=== PATIENT | male | born 1965 | race Two or more races ===

== ENCOUNTER 2017-01-10 19:42 | Emergency (ER) | payer MEDICAID ==
[~2017-01-10] VITALS: Ht 154.9 cm; Wt 73.0 kg
[2017-01-10 20:17] VITALS: BP 125/69
== END 2017-01-10 23:57 | disposition left against medical advice (07) ==
LOC: ER 19:49
DX: R07.9 Chest pain, unspecified (principal); M25.552 Pain in left hip; Z53.21 Procedure and treatment not carried out due to patient leaving prior to being seen by health care provider; Y99.8 Other external cause status; Y93.89 Activity, other specified; W19.XXXA Unspecified fall, initial encounter; Y92.89 Other specified places as the place of occurrence of the external cause

== ENCOUNTER 2025-04-05 13:04 | Inpatient (IN) | payer MEDICAID, SELFPAY ==
[~2025-04-05] VITALS: Ht 152.4 cm; Wt 53.1 kg
[2025-04-05] MEDS: ENOXAPARIN SOD 40 MG/0.4 ML SYRINGE SC ONE (09:00)
--- NOTE | 2025-04-05 14:02 | DVH ---
CLINICAL INDICATION: FALL TECHNIQUE: 3v XY L ANKLE 3 VIEW Comparison: None FINDINGS/IMPRESSION: : Comminuted distal fibular diaphyseal fracture. Medial malleolar fracture. Disruption of the ankle m ortise. Calcaneus intact.
[2025-04-05] MEDS ORDERED: SODIUM CHLORIDE 0.9% 1,000 ML IV ONE (14:15)
[2025-04-05] MEDS ORDERED: SODIUM CHLORIDE 0.9% 500 ML IV ONE (14:15)
--- NOTE | 2025-04-05 14:24 | ED.PDOC ---
Musculoskeletal HPI Comments A 59-YEAR-OLD FEMALE PRESENTS WITH A CHIEF COMPLAINT OF LEFT ANKLE/FOOT PAIN. PATIENT STATES THAT HER "LEG GAVE OUT FROM UNDERNEATH ME" AND HYPEREXTENDED. PATIENT STATES THAT THIS OCCURRED 1.5 WEEKS AGO. PATIENT STATES THAT SHE WAITED THIS LONG TO BE SEEN BECAUSE SHE DIDN'T THINK SHE BREAK IT AT FIRST. PATIENT IS UNABLE TO APPLY WEIGHT TO HER LEFT ANKLE. PATIENT HAS SWELLING, PAIN AND DEFORMITY TO HER LEFT ANKLE. THERE IS AN OBVIOUS DEFORMITY. PT DENIES HEAD INJURY AND OTHER BODY INJURY. NO OTHER SYMPTOMS REPORTED AT THIS TIME OF CARE. Chief Complaint: Lower Extremity Time Seen by MD: 13:52 Primary Care Provider: Veronica Bella Notes: Nurses Notes, Medications, Allergies Allergies: Coded Allergies: NO KNOWN ALLERGIES (Unverified , 01/10/17) Information Source: Patient Mode of Arrival: Wheelchair Location: Left Extremity Location: Ankle, Foot Timing: Days Prehospital treatment: None Severity: Moderate Able to Move Extremity: Yes Bear Weight: No Pain: Moderate Hand Dominance: Right Mechanism: Hyperextension, Spontaneous Circumstances: Spontaneous Onset of Symptoms: After Trauma Symptoms: Swelling, Pain DVT Risk Factors: NONE Last Tetanus: UTD, Unknown Associated signs and symptoms: None Past Medical History PAST MEDICAL HISTORY: DM Past Medical History (Other): NEUROPATHY Surgical History: Denies all surgeries ONCOLOGY COORDINATOR History: Denies all ONCOLOGY COORDINATOR Hx Family History Family History: Reviewed,noncontributory to illness Social History Smoker: Non-Smoker Alcohol: Denies ETOH Use Drugs: Denies Drug Use Lives In: Home Constitutional: denies: chills, diaphoresis, fatigue, fever, malaise, sweats, weakness, others EENTM: denies: blurred vision, double vision, ear bleeding, ear discharge, ear drainage, ear pain, ear ringing, eye pain, eye redness, hearing loss, mouth pain, mouth swelling, nasal discharge, nose bleeding, nose congestion, nose pain, photophobia, tearing, throat pain, throat swelling, voice changes, others Respiratory: denies: cough, hemoptysis, orthopnea, SOB at rest, shortness of breath, SOB with excertion, stridor, wheezing, others Cardiovascular: denies: chest pain, dizzy spells, diaphoresis, Dyspnea on exertion, edema, irregular heart beat, left arm pain, lightheadedness, palpitations, PND, syncope, others Gastrointestinal: denies: abdomen distended, abdominal pain, blood streaked bowels, constipated, diarrhea, dysphagia, difficulty swallowing, hematemesis, melena, nausea, poor appetite, poor fluid intake, rectal bleeding, rectal pain, vomiting, others Genitourinary: denies: abnormal vagina bleeding, burning, dyspareunia, dysuria, flank pain, frequency, hematuria, incontinence, pain, , vagina discharge, urgency, others Neurological: denies: dizziness, fainting, headache, left sided numbness, left sided weakness, numbness, paresthesia, pre-existing deficit, right sided numbness, right sided weakness, seizure, speech problems, tingling, tremors, weakness, others Musculoskeletal: reports: joint pain, joint swelling; denies: back pain, gout, muscle pain, muscle stiffness, neck pain, others Integumetry: denies: bruises, change in color, change in hair/nails, dryness, laceration, lesions, lumps, rash, wounds, others Allergic/Immunocompromised: denies: Difficulty Healing, Frequent Infections, Hives, Itching, others Hematologic/Lymphatic: denies: anemia, blood clots, easy bleeding, easy bruising, swollen glands, others Endocrine: denies: excessive hunger, excessive sweating, excessive thirst, excessive urination, flushing, intolerance to cold, intolerance to heat, unexplained weight gain, unexplained weight loss, others Psychiatric: denies: anxiety, bipolar disorder, depression, hopeless, panic disorder, schizophrenia, sleepless, suicidal, others All Other Systems: Reviewed and Negative Physical Exam General Appearance: No Apparent Distress, Normal HEENT: Normal ENT Inspection, PERRL/EOMI, Pharynx Normal, TMs Normal Neck: Full Range of Motion, Non-Tender, Normal, Normal Inspection Respiratory: Chest Non-Tender, Lungs Clear, No Accessory Muscle Use, No Respiratory Distress, Normal Breath Sounds Cardiovascular: No Edema, No JVD, No Murmur, No Gallop, Normal Peripheral Pulses, Regular Rate/Rhythm Breast Exam: Deferred Gastrointestinal: No Organomegaly, Non Tender, No Pulsatile Mass, Normal Bowel Sounds, Soft Genitalia: Deferred Pelvic: Deferred Rectal: Deferred Extremities: Decreased range of motion, No calf tenderness, Normal capillary refill, No pedal edema, Swelling (BONY TENDERNESS AND SWELLING ON LEFT INNER ANKLE, +DEFORMITY. ), Tender (BONY TENDERNESS, SWELLING AND DEFORMITY ON LEFT INNER ANKLE, A SMALL ABRASION ON LEFT INNER ANKLE WALL WITH LOCALIZED REDNESS, NO PUS DRAINAGE. ) Musculoskeletal : Apperance: Normal Neurologic: Alert, immersion metal cleaner II-XII nml as Tested, No Motor Deficits, Normal Affect, Normal Mood, No Sensory Deficits Cerebellar Function: Normal Reflexes: Normal Skin: Dry, Normal Color, Warm, Wounds (A SMALL ABRASION ON LEFT INNER ANKLE. ) Peripheral Pulses: 2+ carotid (R), 2+ carotid (L), 2+ dorsalis pedis (R), 2+ dorsalis pedis (L) Lymphatic: No Adenopathy Was a procedure done? Was a procedure done?: No Differential Diagnosis EXT Differential Diagnosis: Cellulitis, Fracture, Sprain, Contusion, Strain X-Ray, Labs, Meds, VS Vital Signs Date Time Temp Pulse Resp B/P (MAP) Pulse Ox O2 Delivery O2 Flow Rate FiO2 04/05/25 14:14 97.7 79 17 123/58 (79) 96 97.7 04/05/25 14:14 79 17 96 Room Air 04/05/25 13:05 97.9 82 16 111/54 97 97.9 Current Medications Medications (Trade) Dose Ordered Sig/Abdiel Route Start Time Stop Time Status Last Admin Acetaminophen/ Hydrocodone Bitart ([place] 5/325MG Tab) 1 tab ONCE ONCE PO 04/05/25 14:15 04/05/25 14:16 DC 04/05/25 14:39 PATIENT: ARASH TURNERCT: [id number]: [id number] : 1965 LOC: ER ROOM / BED: / AGE / SEX: 59 / F ADM STATUS: REG ER SERVICE 1322 ORDERING PHYSICIAN: EDEL GE PROCEDURE(s): LANKL - L ANKLE 3 VIEW REASON: FALL ORDER NUMBER(s): [id number], ACCESSION NUMBER(s): [id number] CLINICAL INDICATION: FALL TECHNIQUE: 3v XY L ANKLE 3 VIEW Comparison: None FINDINGS/IMPRESSION: : Comminuted distal fibular diaphyseal fracture. Medial malleolar fracture. Disruption of the ankle mortise. Calcaneus intact. ATED BY: KEN ALMANZA MD DICTATED DATE/TIME: 04/05/25 1400 SIGNED BY: KEN ALMANZA MD SIGNED DATE/TIME: 04/05/25 1400 CC: X-Ray, Labs, Meds, VS Comment EXTERNAL MEDICAL RECORDS REVIEWED: [NONE] INDEPENDENT HISTORIANS: [NONE] SOCIAL DETERMINANTS OF HEALTH: [NONE] LABS ORDERED: NONE REVIEWED AND INTERPRETED RESULTS: NONE IMAGING ORDERED: L ANKLE/FOOT X-RAY TREATMENTS ORDERED: NORCO 5/325 PO, NS0.9 500ML PROCEDURES PERFORMED: NONE CRITICAL CARE TIME: NONE I HAVE DISCUSSED THE PATIENT WITH THE ATTENDING PHYSICIAN, DR. LOIDA MARTINEZ, AND SHE AGREES WITH THE PATIENT'S PLAN OF CARE AND DISPOSITION. 15:00 I DISCUSSED THE CASE WITH ORTHOPEDIC SURGEON, DR. TORRES. DR. TORRES ADVISED TO ADMIT THE PATIENT TO THE HOSPITAL SO THAT HE CAN CONSULT AND SCHEDULE PATIENT FOR SURGERY TO REPAIR HER LEFT ANKLE FRACTURE. BASED ON THE IMAGING STUDIES AND CONSULTATION WITH ORTHO, I WILL ADMIT THE PATIENT TO THE HOSPITAL FOR FURTHER WORK-UP AND PENDING SURGERY. Time of 1ST Reevaluation: 15:00 Reevaluation 1ST: Unchanged Consultation: Other (15:00 I DISCUSSED THE CASE WITH ORTHOPEDIC SURGEON, DR. TORRES. ) Patient Education/Counseling: Diagnosis, Treatment Family Education/Counseling: Diagnosis, Treatment Departure 1 Departure Time of Disposition: 15:00 Impression: Primary Impression: Displaced fracture of shaft of left fibula Qualified Codes: S82.452A - Displaced comminuted fracture of shaft of left fibula, initial encounter for closed fracture Additional Impression: Fracture of medial malleolus, left, closed Qualified Codes: S82.52XA - Displaced fracture of medial malleolus of left tibia, initial encounter for closed fracture Disposition: ADMITTED INPATIENT Admit to: Med Surg Condition: Serious Discharged With: Self Critical Care Note Critical Care Time?: No Stability Stability form required: Yes Unstable for transfer: Requires medication, ED Physician Assesment, Possible rapid decline Heart Score Heart Score: Heart Score Response (Comments) Value History N/A 0 EKG N/A 0 Age N/A 0 Risk Factors N/A 0 Troponin N/A 0 Total 0 I personally scribed for EDEL GE ([email or web address]) on 04/05/25 at 14:24. Electronically submitted by Olman Wakefield ([email or web address]). EDEL GE Apr 05, 2025 14:24
[2025-04-05] MEDS ORDERED: DOCUSATE SOD 100 MG CAP PO PRN (14:30)
[2025-04-05] MEDS ORDERED: MORPHINE SULFATE INJ 2 MG/ml SYRG IV PRN (14:30)
[2025-04-05] MEDS ORDERED: ACETAMINOPHEN 325 MG TAB PO PRN (14:30)
[2025-04-05] MEDS ORDERED: NITROGLYCERIN 0.4 MG SL TAB SL PRN (14:30)
[2025-04-05] MEDS: HYDROcodone-ACET 5/325MG TAB PO ONE (14:39)
--- NOTE | 2025-04-05 15:07 | DVHHPRES ---
History of Present Illness Resident Creating Document: DUYEN WILSON RESIDENT History of Present Illness Ms. Macias,a 59-year-old female presents with left ankle and foot pain following a spontaneous hyperextension injury 1.5 weeks ago, describing that her "leg gave out" beneath her. She delayed seeking care, believing the injury was not severe initially. She is currently unable to bear weight on the affected limb and reports moderate pain, swelling, erythema, and visible deformity. She arrived via wheelchair and is able to move the extremity but not ambulate. No prehospital treatment was administered. Her past medical history is significant for diabetes; she denies any surgical, gynecological, or family history relevant to the current illness. She is a non-smoker and denies alcohol or drug use. PMHx: DM PSHx: Denies all surgeries RECAPPER History: Denies all OBGYN Family History: Reviewed, noncontributory to illness Social History: lives at home with family, denies alcohol, recreational drug, or any other substances. Review of Systems Constitutional: No: Fever, Chills, Sweats, Weakness, Malaise, Other Eyes: No: Pain, Vision change, Conjunctivae inflammation, Eyelid inflammation, Other, Redness ENT: No: Ear pain, Ear discharge, Nose pain, Nose discharge, Nose congestion, M outh pain, Mouth swelling, Throat pain, Throat swelling, Other Respiratory: No: Cough, Dry, Shortness of breath, SOB with excertion, Wheezing, Hemoptysis, Pleuritic Pain, Sputum, Wheezing, Other Cardiovascular: No: Chest Pain, Palpitations, Orthopnea, Paroxysmal Noc. Dyspnea, Edema, Lt Headedness, Other Gastrointestinal: No: Nausea, Vomiting, Abdominal Pain, Diarrhea, Constipation, Melena, Hematochezia, Other Genitourinary: No Dysuria, No Frequency, No Incontinence, No Hematuria, No Retention, No Other Musculoskeletal: foot pain; No: other, neck pain, shoulder pain, arm pain, back pain, hand pain, leg pain Skin: No: Rash, Lesions, Jaundice, Bruising, Other Neurological: No: Weakness, Numbness, Incoordination, Change in speech, Confu tyshawn, Seizures, Other Allergies: Coded Allergies: NO KNOWN ALLERGIES (Unverified , 01/10/17) Medications Current Medications Medications Dose Ordered Sig/Abdiel Route Start Time Stop Time Status Last Admin Dose Admin Sodium Chloride 1,000 ml @ 120 mls/hr Q8H20M IV 04/05/25 14:30 Acetaminophen 325 mg Q4HP PRN PO 04/05/25 14:30 Acetaminophen/ Hydrocodone Bitart 1 tab Q4HP PRN PO 04/05/25 14:30 Ondansetron HCl 4 mg Q4HP PRN IV 04/05/25 14:30 Docusate Sodium 100 mg BIDPRN PRN PO 04/05/25 14:30 Morphine Sulfate 2 mg Q4HPRN PRN IV 04/05/25 14:30 Nitroglycerin 0.4 mg Q5MINP PRN SL 04/05/25 14:30 Morphine Sulfate 2 mg Q30M PRN IV 04/05/25 14:30 Exam Vital Signs Vital Signs Date Time Temp Pulse Resp B/P (MAP) Pulse Ox O2 Delivery O2 Flow Rate FiO2 04/05/25 14:14 97.7 79 17 123/58 (79) 96 97.7 04/05/25 14:14 Room Air General Appearance: Alert, Oriented X3, Cooperative, mild distress HEENT: Atraumatic, PERRLA, EOMI, Other (dry mucosa) Respiratory: Clear to auscultation, Normal air movement Cardiovascular: Regular rate, Normal S1, Normal S2, No murmurs Abdominal: Normal bowel sounds, Soft, No tenderness, No hepatospenomegaly, No masses Extremities: No clubbing, No cyanosis, No edema, Normal pulses, No tenderness/swelling, Other (left ankle deformity acute as compared to the right one ) Skin: No rashes, No breakdown, No significant lesion Neuro: Normal speech, Strength at 5/5 X4 ext, Normal tone, Sensation intact, Cranial nerves 3-12 NL, Reflexes 2+, Other (deformity, tenderness and pain the the left ankle. ) Psych/Mental Status: Mental status NL, Mood NL SEPSIS Sepsis Screen Date sepsis recognized/suspect: Apr 05, 2025 Time Sepsis recognized/suspect: 1308 Recent Procedure: No On Antibiotic Therapy: No Respiratory Rate >20: No Heart Rate >90: No Temp<36 C (96.8 F) or >38.3 C: No SBP <90 or MAP <65 mmHG: No New Acute Mental Status Change: No Is the patient on CPAP, BIPAP,: No Physician Orders L Ankle 3 View (04/05/25 13:22) Complete Blood Count (04/05/25 14:08) Basic Metabolic Panel (04/05/25 14:08) Prothrombin Time W/ Inr (04/05/25 14:08) Type And Screen (04/05/25 14:08) Heplock Iv (04/05/25 ) Sodium Chloride 0.9% (04/05/25 14:15) Sodium Chloride 0.9% (04/05/25 14:15) Admit (04/05/25 14:28) Allergies (04/05/25 14:) Code Status (04/05/25 14:) Sodium Chloride 0.9% (04/05/25 14:30) Acetaminophen Tablet (Tylenol Tablet) (04/05/25 14:30) Hydrocodone-Acet 5/325mg Tab ([place] 5/32 (04/05/25 14:30) Ondansetron Hcl (Zofran) (04/05/25 14:30) Docusate Sodium Capsule (Colace Capsule) (04/05/25 14:30) Fall Risk Precautions In Place QSHIFT (04/05/25 14:28) Complete Blood Count (04/06/25 04:00) Comprehensive Metabolic Panel (04/06/25 04:00) Cardiac Diet-2gna,Lofat,Lochol (04/05/25 Dinner) Pt Request For Service (04/05/25 14:) Echo 2d Mode Cardiac Dop (04/05/25:28) Carotid Duplx W Color Dop (04/05/25 14:28) Condition: Fair (04/05/25 14:28) Bedrest With Bathroom Privileg (04/05/25 14:28) Morphine Sulfate Injection (04/05/25 14:30) Sequential Compression Device (04/05/25 ) Nitroglycerin Sublingual (Ntrostat Subli (04/05/25 14:30) Morphine Sulfate Injection (04/05/25 14:30) Oxygen By Nasal Cannula (04/05/25:) Stat Ekg For Chest Pain (04/05/25 14:) Notify Md Of Changes From Base (04/05/25 14:28) Escalator Operator For 24 Hours (04/05/25 14:28) Emergency Dysrhythmia Protocol (04/05/25 14:28) Rhythm Strips Once Every Shift (04/05/25 14:28) Hepatic Panel (04/05/25 14:28) * Orthopedic Consult (04/05/25 14:35) Fall Precautions Initiated (04/05/25 14:40) Ekg On Admit (04/05/25 14:42) Troponin-I Hs (04/05/25 14:42) Vital Signs Date Time Temp Pulse Resp B/P (MAP) Pulse Ox O2 Delivery O2 Flow Rate FiO2 04/05/25 14:14 97.7 79 17 123/58 (79) 96 97.7 04/05/25 14:14 79 17 96 Room Air 04/05/25 13:05 97.9 82 16 111/54 97 97.9 Medications Medications Dose Ordered Sig/Abdiel Route Start Time Stop Time Status Last Admin Dose Admin Acetaminophen/ Hydrocodone Bitart 1 tab ONCE ONCE PO 04/05/25 14:15 04/05/25 14:16 DC 04/05/25 14:39 1 TAB Assessment/Plan Assessment/Plan # Left ankle fracture: Computed distal fibular fracture, medial malleolar fracture, pain control, orthopedic consult. physical therapy on board. # Diabetes mellitus: At presentation POC is 331, check HbA1c, control the BG, in-hospital target 140s to 180. # Mechanical fall: Ruled out any stroke, fall precautions, neuro checks, unlikely distal neurovascular compromise, orthopedic consult, pain control, labs to check. Rule out ACS, stroke, neuro Logic, cardiac, cause of syncope. orthostatic vitals to check. # Fall fracture, likely underlying osteopenia/ osteoporosis: Risk assessment and management outpatient chawla. # GI prophylaxis: Oral Famotidine # Diet: Cardiac, CCH # DVT prophylaxis: lovenox PCP: Dr. Penny Barriers to discharge: Medical management ongoing Case discussed with Dr. Suarez. Code status: Full code. Complex patient care discussion needed total 35 minutes. Plan discussed with: Patient My Orders Orders - DUYEN WILSON RESIDENT Procedure Category Date Status Time Admit ADMIT 04/05/25 Transmitted 14:28 Allergies ANG 04/05/25 In Process 14:28 Code Status CODE 04/05/25 Transmitted 14:28 Sodium Chloride 0.9% PHA 04/05/25 In Process 14:30 Acetaminophen Tablet PHA 04/05/25 In Process (Tylenol Tablet) 14:30 Hydrocodone-Acet PHA 04/05/25 In Process 5/325mg Tab ([place] 14:30 Ondansetron Hcl PHA 04/05/25 In Process (Zofran) 14:30 Docusate Sodium PHA 04/05/25 In Process Capsule (Colace 14:30 Fall Risk Precautions ANG 04/05/[address] 14:28 Complete Blood Count LAB 04/06/25 Verified 04:00 Comprehensive LAB 04/06/25 Verified Metabolic Panel 04:00 Cardiac DIET 04/05/25 Transmitted Diet-2gna,Lofat,Lochol Dinner Pt Request For Service PT 04/05/25 Logged 14:28 Echo 2d Mode Cardiac US 04/05/25 Logged DOP 14:28 Carotid Duplx W Color US 04/05/25 Logged DOP 14:28 Condition: Fair ANG 04/05/25 In Process 14:28 Bedrest With Bathroom ANG 04/05/25 In Process Privileg 14:28 Morphine Sulfate PHA 04/05/25 In Process Injection 14:30 Sequential ANG 04/05/25 In Process Compression Device Nitroglycerin PHA 04/05/25 In Process Sublingual (Ntrostat 14:30 Morphine Sulfate PHA 04/05/25 In Process Injection 14:30 Oxygen By Nasal RT 04/05/25 Transmitted Cannula 14:28 Stat Ekg For Chest ANG 04/05/25 In Process Pain 14:28 Notify Of Changes ANG 04/05/25 In Process From Base 14:28 Escalator Operator For ANG 04/05/25 In Process 24 Hours 14:28 Emergency Dysrhythmia ANG 04/05/25 In Process Protocol 14:28 Rhythm Strips Once ANG 04/05/25 In Process Every Shift 14:28 Hepatic Panel LAB 04/05/25 Logged 14:28 * Orthopedic Consult CONS 04/05/25 Transmitted 14:35 Fall Precautions ANG 04/05/25 In Process Initiated 14:40 Ekg On Admit ANG 04/05/25 In Process 14:42 Troponin-I Hs LAB 04/05/25 Logged 14:42 Date of Service: Apr 05, 2025 Billing Provider: GLO SUAREZ MD Common Visit Codes: [id number] INP/OBS CARE (HIGH) Secondary Visit Codes: [id number] CARE PLAN 30 MINUTES DUYEN WILSON RESIDENT Apr 05, 2025 15:07
[2025-04-05 15:15] LABS: Hematocrit 34.5 % (36.0-46.0); Hemoglobin 11.6 g/dL (12.2-16.2); Mean Corpuscular Hemoglobin 31.6 pg (28.0-32.0); Mean Corpuscular Volume 94.2 fL (80.0-100.0); Nucleated Red Blood Cells % 0.1 %
[2025-04-05] MEDS: ACCU-CHEK COMFORT CURVE STRIP VI ONE (15:15)
[2025-04-05] MEDS ORDERED: DEXTROSE (50%) 50ML SYRG IV ONE (15:15)
[2025-04-05] MEDS ORDERED: ENOXAPARIN SOD 30 MG/0.3 ML SYRINGE SC ONE (15:15)
[2025-04-05] MEDS ORDERED: FAMOTIDINE 20 MG TAB PO ONE (15:15)
[2025-04-05 15:19] LABS: Chloride 104 mmol/L (98-107); Potassium 5.1 mmol/L (3.5-5.1); Sodium 138 mmol/L (136-145)
[2025-04-05 15:20] LABS: Anion Gap 6 (5-15); Calcium 9.1 mg/dL (8.7-10.4); Carbon Dioxide 28 mmol/L (20-31)
[2025-04-05 15:25] LABS: BUN/Creatinine Ratio 40.7 (10.0-20.0)
[2025-04-05 15:26] LABS: Blood Urea Nitrogen 46 mg/dL (9-23); Glucose 306 mg/dL (74-106)
[2025-04-05 15:27] LABS: INR 0.98 (0.9-1.15); Prothrombin Time 10.4 sec (9.3-11.8)
[2025-04-05 15:37] LABS: Alanine Aminotransferase 14 U/L (7-40); Albumin 4.2 g/dL (3.2-4.8); Total Protein 6.9 g/dL (5.7-8.2)
[2025-04-05 15:42] LABS: Alkaline Phosphatase 131 U/L (46-116); Bilirubin, Direct < 0.1 mg/dL (<0.3); Bilirubin, Total 0.2 mg/dL (0.2-1.0)
--- NOTE | 2025-04-05 16:12 | DVH ---
Carotid Duplex Date: 04/05/2025 03:04 PM Clinical History: possible carotid stenosis to rule out Comparison: None Technique: Duplex Doppler evaluation of the extracranial carotid and vertebral arteries including col or Doppler and spectral/pulsed waveform analysis was performed. Findings: RIGHT SIDE: The peak systolic velocities are 69 cm/s in the distal CCA and 116 cm/s in the proximal ICA.The ICA/C CA ratio is less than 2. The external carotid artery is patent with peak systolic velocity of 162 cm/s proximally. There is appropriate antegrade flow in the right vertebral artery. LEFT SIDE: The peak systolic velocities are 85 cm/s in the distal CCA and 136 cm/s in the proximal ICA.. The ICA /CCA ratio is less than 2. The external carotid artery is patent with peak systolic velocity of 86 cm/s proximally. There is appropriate antegrade flow in the left vertebral artery. IMPRESSION: 1. No hemodynamically significant stenosis noted in the right carotid system. 2. No hemodynamically significant stenosis noted in the left carotid system. 3. Mild calcified plaque bilaterally greater than 50% stenosis on the right and less than 50% stenosi s on the left. 4. Reference: Radiology 2003; 229:[id number]
--- NOTE | 2025-04-05 16:51 | DVH ---
CHEST RADIOGRAPH Indication: cad Technique: Single frontal view of the chest was obtained COMPARISON: None FINDINGS: Lines and Tubes: None Lungs: Congestion Pleura: No effusion. No pneumothorax. Cardiomediastinal contours: Unremarkable Bones: Unremarkable IMPRESSION: Increased interstital prominence. This may represent pulmonary vascular congestion and/or viral pneum onia. Clinical correlation advised.
[2025-04-05 18:00] VITALS: BP 153/78; PULSE 71; RESP 17; TEMP 97.3; O2SAT 97
--- NOTE | 2025-04-05 18:04 | DVH ---
Left lower extremity venous duplex Clinical History: LEFT ANKLE FX, PER Comparison: XY L ANKLE 3 VIEW on DOS: 04/05/25 Technique: Duplex Doppler evaluation of the deep venous system of the left lower extremity from the common femor al vein to the popliteal vein including color Doppler and spectral/pulsed waveform analysis was perfo rmed. Findings: The common femoral vein demonstrates appropriate compressibility and waveform variability. There is compressibility/patency of the great saphenous vein at the proximal thigh. The femoral vein demonstrates appropriate compressibility and waveform variability. The deep femoral vein demonstrates appropriate compressibility and waveform variability. The popliteal vein demonstrates appropriate compressibility and waveform variability. There is normal compressibility at the tibioperoneal trunk. Impression: 1. No left femoropopliteal venous thrombosis.
[2025-04-05 20:00] VITALS: RESP 18
[2025-04-05] MEDS: MORPHINE SULFATE INJ 2 MG/ml SYRG IV PRN (20:09)
[2025-04-05 21:00] VITALS: BP 169/77; PULSE 74; RESP 16; TEMP 97.3; O2SAT 95
[2025-04-05] MEDS: INSULIN LANTUS (GLARGINE) 1 /0.01ml (100units/ml) SC SCH (22:29)
[2025-04-06] VITALS (9 sets, daily range): BP systolic 133–168; BP diastolic 67–88; PULSE 71–85; RESP 16–18; TEMP 97.6–98.5; O2SAT 93–98
[2025-04-06] MEDS: SODIUM CHLORIDE 0.9% 1,000 ML IV SCH (01:20)
[2025-04-06 05:35] LABS: Hematocrit 31.8 % (36.0-46.0); Hemoglobin 10.8 g/dL (12.2-16.2); Mean Corpuscular Hemoglobin 31.5 pg (28.0-32.0); Mean Corpuscular Volume 92.4 fL (80.0-100.0); Nucleated Red Blood Cells % 0.0 %
[2025-04-06 05:52] LABS: Alanine Aminotransferase 10 U/L (7-40); Albumin 3.6 g/dL (3.2-4.8); Alkaline Phosphatase 111 U/L (46-116); Anion Gap 5 (5-15); BUN/Creatinine Ratio 40.0 (10.0-20.0); Calcium 9.0 mg/dL (8.7-10.4); Carbon Dioxide 27 mmol/L (20-31); Chloride 106 mmol/L (98-107); Potassium 4.8 mmol/L (3.5-5.1); Sodium 138 mmol/L (136-145); Total Protein 6.7 g/dL (5.7-8.2)
[2025-04-06 05:54] LABS: Bilirubin, Total 0.2 mg/dL (0.2-1.0); Blood Urea Nitrogen 28 mg/dL (9-23); Glucose 185 mg/dL (74-106)
[2025-04-06] MEDS ORDERED: ceFAZolin 2 GM/D5W50ml 50 ML IV ONE (07:32)
[2025-04-06] MEDS: ENOXAPARIN SOD 40 MG/0.4 ML SYRINGE SC SCH (10:00)
--- NOTE | 2025-04-06 12:24 | DVHPN2 ---
Subjective Patient is seen and examined at bedside, patient reports she was in her kitchen slipped and fell. Left ankle swollen. Reviewed x-ray findings with the patient and spouse. Patient does report she has smoker but no shortness of breaths. Changes from previous H/P or p: No Changes Eyes: No Pain, No Vision change, No Conjunctivae inflammation, No Eyelid inflammation, No Other, No Redness ENT: No Ear pain, No Ear discharge, No Nose pain, No Nose discharge, No Nose congestion, No Mouth pain, No Mouth swelling, No Throat pain, No Throat swelling, No Other Cardiovascular: No Chest Pain, No Palpitations, No Orthopnea, No Paroxysmal Noc. Dyspnea, No Edema, No Lt Headedness, No Other Respiratory: No Cough, No Dry, No Shortness of breath, No SOB with excertion, No Wheezing, No Hemoptysis, No Pleuritic Pain, No Sputum, No Other Gastrointestinal: No Nausea, No Vomiting, No Abdominal Pain, No Diarrhea, No Constipation, No Melena, No Hematochezia, No Other Genitourinary: No Dysuria, No Frequency, No Incontinence, No Hematuria, No Retention, No Other Musculoskeletal: No other, No neck pain, No shoulder pain, No arm pain, No back pain, No hand pain, No leg pain; foot pain Skin: No Rash, No Lesions, No Jaundice, No Bruising, No Other Objective Vitals Vital Signs Date Time Temp Pulse Resp B/P (MAP) Pulse Ox O2 Delivery O2 Flow Rate FiO2 04/06/25 08:57 98.0 83 16 162/78 (106) 98 98.0 04/06/25 08:00 Room Air* 0 21 Intake/Output Intake and Output 04/06/25 07:00 Intake Total 500 ml Balance 500 ml Intake Oral 500 ml # Voids 3 General Appearance: Alert, Oriented X3, Cooperative, No acute distress HEENT: Atraumatic Lungs: Clear to auscultation Cardiovascular: Regular rate, Normal S1, Normal S2 Abdomen: Normal bowel sounds, Soft Extremities: Other (Left Ankle Swelling) Psych/Mental Status: Mental status NL Medications Current Medications Medications Dose Ordered Sig/Abdiel Route Start Time Stop Time Status Last Admin Dose Admin Acetaminophen 325 mg Q4HP PRN PO 04/05/25 14:30 Acetaminophen/ Hydrocodone Bitart 1 tab Q4HP PRN PO 04/05/25 14:30 Ondansetron HCl 4 mg Q4HP PRN IV 04/05/25 14:30 Docusate Sodium 100 mg BIDPRN PRN PO 04/05/25 14:30 Morphine Sulfate 2 mg Q4HPRN PRN IV 04/05/25 14:30 04/06/25 01:37 2 MG Nitroglycerin 0.4 mg Q5MINP PRN SL 04/05/25 14:30 Morphine Sulfate 2 mg Q30M PRN IV 04/05/25 14:30 Famotidine 20 mg HS PO 04/06/25 22:00 Enoxaparin Sodium 40 mg DAILY SC 04/06/25 10:00 Insulin Glargine 10 units HS SC 04/05/25 22:00 04/05/25 22:29 10 UNITS Laboratory Results Laboratory Tests 04/06/25 04:34 Chemistry Test 04/05/25 14:40 04/06/25 04:34 Albumin 4.2 g/dL (3.2-4.8) 3.6 g/dL (3.2-4.8) Calcium Level 9.1 mg/dL (8.7-10.4) 9.0 mg/dL (8.7-10.4) Total Protein 6.9 g/dL (5.7-8.2) 6.7 g/dL (5.7-8.2) Coagulation Test 04/05/25 14:40 Prothrombin Time 10.4 sec (9.3-11.8) Prothrombin Time INR 0.98 (0.9-1.15) Cardiac Markers Test 04/06/25 04:34 B-Type Natriuretic Peptide Pending LFT Test 04/05/25 14:40 04/06/25 04:34 Alanine Aminotransferase (ALT) 14 U/L (7-40) 10 U/L (7-40) Alkaline Phosphatase 131 U/L (46-116) H 111 U/L (46-116) Aspartate Amino Transferase (AST) 16 U/L (13-40) 13 U/L (13-40) Direct Bilirubin < 0.1 mg/dL (<0.3) Total Bilirubin 0.2 mg/dL (0.2-1.0) 0.2 mg/dL (0.2-1.0) HgA1c, TSH Test 04/05/25 14:40 Hemoglobin A1c 9.8 % A1C (<5.7) H Thyroid Stimulating Hormone (TSH) 2.08 uIU/mL (0.55-4.78) Assessment/Plan Assessment/Plan # Left Ankle Fracture - Ortho Surgery in AM # Uncontrolled DM2 A1c 9.8 - 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 Pulm Edema - Get CT Chest - ECHO # CHRISTINA due to VMN- present on admission - Improving - DC IVF now due to possible pulm edema # Goals of care discussion >19 mins FULL CODE Plan discussed with: Patient, Spouse My Orders Orders - GLO PANIAGUA MD Procedure Category Date Status Time B-Type Natriuretic LAB 04/06/25 In Process Peptide 10:48 Covid19 Antigen [place] [facility] 04/06/25 Logged Rapid Influenza A&B LAB 04/06/25 Logged 10:48 Basic Metabolic Panel LAB 04/07/25 Verified 04:00 Complete Blood Count LAB 04/07/25 Verified 04:00 B-Type Natriuretic LAB 04/07/25 Verified Peptide 04:00 Magnesium LAB 04/07/25 Verified 04:00 Insert Kidd Catheter ANG 04/06/25 Transmitted 12:19 Provide Diabetic ORDERS 04/06/25 Transmitted Education 12:20 Date of Service: Apr 06, 2025 Billing Provider: GLO PANIAGUA MD Common Visit Codes: 03255-[id number]/[id number] DISCH DAY >30min GLO PANIAGUA MD Apr 06, 2025 12:24
[2025-04-06] MEDS ORDERED: DEXTROSE (50%) 50ML SYRG IV PRN (12:45)
--- NOTE | 2025-04-06 13:17 | DVH ---
Procedure: CT CHEST WITHOUT CONTRAST Reason for study/Clinical History: pna Comparison Study: XY CHEST XRAY 1 VIEW on DOS: 04/05/25 TECHNIQUE: Multidetector CT of the chest was performed from the lung apices to the upper abdomen with out the use of intravenous contract. Axial, coronal and sagittal multiplanar reformats were performed . Radiation Dose Information: CT Dose: CTDI volume is 5.22 mGy. Dose-length product is 192.49 mGy*cm The dose indicators for CT are the volume Computed Tomography (CT) Dose Index (CTDIvol) and the Dose Length Product (DLP), and are measured in units of mGy and mGy-cm, respectively. These indicators are not patient dose, but values generated from the CT scanner acquisition factors. The report includes radiation exposure data for exposures received during this examination. FINDINGS: Lower neck: Unremarkable. Lungs: No focal consolidation. No suspicious pulmonary nodule. Heart/Vascular Structures: Cardiomegaly. Coronary artery calcifications. Vascular calcifications of t he aorta. Lymph Nodes: No adenopathy Pleura: No pleural effusion or significant pneumothorax. Musculoskeletal: No acute osseous abnormality. Mild degenerative changes of the spine. Soft tissues: Normal. Upper abdomen: Cholelithiasis IMPRESSION: No acute intrathoracic abnormality. Radiation optimization: All CT scans at this facility use at least one of these dose optimization vikram hniques: automated exposure control mA and/or kV adjustment per patient size (includes targeted exam s where dose is matched to clinical indication) or iterative reconstruction.
[2025-04-06] MEDS: InsuLIN REG 1unit/0.01ml Soln (100units/ml) SC ONE (16:49)
[2025-04-06] MEDS: ACCU-CHEK COMFORT CURVE STRIP VI SCH (17:00)
[2025-04-06] MEDS: InsuLIN REG 1unit/0.01ml Soln (100units/ml) SC SCH (17:12)
[2025-04-06 18:04] LABS: COVID19 ANTIGEN SOFIA FIA NEGATIVE (NEGATIVE)
[2025-04-06] MEDS: FAMOTIDINE 20 MG TAB PO SCH (21:37)
[2025-04-06] MEDS: HYDROcodone-ACET 5/325MG TAB PO PRN (23:19)
[2025-04-07] VITALS (8 sets, daily range): BP systolic 134–159; BP diastolic 64–77; PULSE 68–83; RESP 12–18; TEMP 97.5–98.3; O2SAT 95–100
[2025-04-07 07:23] LABS: Hematocrit 37.6 % (36.0-46.0); Hemoglobin 12.8 g/dL (12.2-16.2); Mean Corpuscular Hemoglobin 31.5 pg (28.0-32.0); Mean Corpuscular Volume 92.5 fL (80.0-100.0); Nucleated Red Blood Cells % 0.1 %
[2025-04-07 07:33] LABS: Anion Gap 6 (5-15); Carbon Dioxide 26 mmol/L (20-31); Potassium 4.9 mmol/L (3.5-5.1); Sodium 139 mmol/L (136-145)
[2025-04-07 07:34] LABS: Calcium 9.4 mg/dL (8.7-10.4)
[2025-04-07 07:37] LABS: Chloride 107 mmol/L (98-107)
[2025-04-07 07:39] LABS: BUN/Creatinine Ratio 28.6 (10.0-20.0); Blood Urea Nitrogen 18 mg/dL (9-23); Glucose 165 mg/dL (74-106)
[2025-04-07 07:40] LABS: Magnesium 2.3 mg/dL (1.6-2.6)
--- NOTE | 2025-04-07 08:16 | DVHSR ---
APPROVED REPORT EXAM: Two-dimensional and M-mode echocardiogram with Doppler and color Doppler. Blood Pressure: 144/75 mmHg INDICATION Pre-Op Rule out structural heart disease RISK FACTORS Height: 60, Weight: 115 DIMENSIONS LVDd4.6 (3.8-5.7cm)LA (2D)3.5 (1.9-4.0cm)Aortic Root3.6 (2.0-3.7cm) LVDs3.1 (2.5-4.0cm)LA (MM) (1.9-4.0cm)Aortic Cusp Exc1.6 (1.5-2.0cm) EF (%) 60.0 (55-70%)Rt. Atrium4.3 (1.9-4.0cm)Asc. Aorta cm IVSd1.1 (0.7-1.1cm)RV (D) (1.8-2.4cm) PWd1.2 (0.7-1.1cm) Mitral Valve MitralMitral Stenosis E wave0.70m/sMV Mean GR.mmHg A wave1.15m/sMV Peak GR.mmHg E/A ratio0.62D MVAcm2 DECEL [id number] 1/2 [id number] IVRTmsDop MVA3.57cm2 Aortic Valve Aortic ValveAortic Stenosis V10.90m/Regina Mean GR.4mmHg V21.43m/Regina Peak GR.8mmHg LVOT Diameter2.1 (1.8-2.4cm)Doppler AVA2.18cm2 Pulmonic Valve V20.97m/s Conclusion lvef 65% grade 1 diastolic dysfunction normal RV functoin normla atria no severe valve abnormalities noted
[2025-04-07] MEDS ORDERED: MIDAZOLAM HCL 2MG/2ML 2ml VIAL (1mg/ml) ONE (13:04)
[2025-04-07] MEDS ORDERED: fentaNYL CITRATE 100 MCG/2 ML VL ONE (13:04)
--- NOTE | 2025-04-07 13:05 | DVHINCON2 ---
Date of service: Apr 06, 2025 Reason for Consultation Left ankle fracture History of Present Illness 59 yo F sp mechanical fall 2 weeks ago on her left side. Patient states she was walking on left leg she said she didnt know it was broken. Hx of neuropathy at baseline from uncontrolled DM Past Medical History PAST MEDICAL HISTORY: DM Past Medical History (Other): NEUROPATHY Surgical History: Denies all surgeries CONCRETE ROD BUSTER History: Denies all CONCRETE ROD BUSTER Hx Family History: Diabetes mellitus G8 MOTHER, Onset:30's - 40 Allergies: Coded Allergies: NO KNOWN ALLERGIES (Unverified , 01/10/17) Current Medications Current Medications Medications (Trade) Dose Ordered Sig/Abdiel Route PRN Reason Start Time Stop Time Status Last Admin Famotidine (Pepcid Tablet) 20 mg HS PO 04/06/25 22:00 04/06/25 21:37 Diagnostic Test (Pha) (Accu-Chek Comfort Curve T) 1 strip ACHS 04/06/25 17:00 04/07/25 12:07 Insulin Human Regular (InsuLIN R) ACHS SC 04/06/25 17:00 04/07/25 06:37 Review of Systems 10 POINT ROS is neg Vital Signs Vital Signs Date Time Temp Pulse Resp B/P (MAP) Pulse Ox O2 Delivery O2 Flow Rate FiO2 04/07/25 09:00 98.2 75 17 159/75 (103) 98 98.2 04/07/25 08:00 Room Air* 0 21 Physical Exam NAD LLE: abrasion medial aspect of ankle Deformity noted at ankle +ehl/fhl dec sens L3-S1 foot wwp Labs/Diagnostic Data Labs Test 04/07/25 12:03 04/07/25 06:09 04/06/25 17:35 04/06/25 04:34 Range/Units POC Glucose 160 H 70-106 mg/dl White Blood Count 6.4 4.4-10.8 10^3/uL Red Blood Count 4.06 4.0-5.20 10^6/uL Hemoglobin 12.8 # 12.2-16.2 g/dL Hematocrit 37.6 # 36.0-46.0 % Mean Corpuscular Volume 92.5 80.0-100.0 fL Mean Corpuscular Hemoglobin 31.5 28.0-32.0 pg Mean Corpuscular Hemoglobin Concent 34.1 32.0-36.0 g/dL Red Cell Distribution Width 12.6 11.8-14.3 % Platelet Count 279 140-450 10^3/uL Mean Platelet Volume 7.1 6.9-10.8 fL Neutrophils (%) (Auto) 48.1 37.0-80.0 % Lymphocytes (%) (Auto) 43.0 10.0-50.0 % Monocytes (%) (Auto) 5.7 0.0-12.0 % Eosinophils (%) (Auto) 2.9 0.0-7.0 % Basophils (%) (Auto) 0.3 0.0-2.0 % Neutrophils # (Auto) 3.1 1.6-8.6 10 ^3/uL Lymphocytes # (Auto) 2.8 0.4-5.4 10 ^3/uL Monocytes # (Auto) 0.4 0-1.3 10 ^3/uL Eosinophils # (Auto) 0.2 0-0.8 10 ^3/uL Basophils # (Auto) 0 0-0.2 10 ^3/uL Nucleated Red Blood Cells 0.1 % Sodium Level 139 136-145 mmol/L Potassium Level 4.9 3.5-5.1 mmol/L Chloride Level 107 98-107 mmol/L Carbon Dioxide Level 26 20-31 mmol/L Anion Gap 6 5-15 Blood Urea Nitrogen 18 # 9-23 mg/dL Creatinine 0.63 0.550-1.02 mg/dL Glomerular Filtration Rate Calc 101 >90 mL/min BUN/Creatinine Ratio 28.6 H 10.0-20.0 Serum Glucose 165 H 74-106 mg/dL Calcium Level 9.4 8.7-10.4 mg/dL Magnesium Level 2.3 1.6-2.6 mg/dL B-Type Natriuretic Peptide 114.75 0-100 pg/mL Influenza Type A Antigen Negative Negative Influenza Type B Antigen Negative Negative SARS-CoV-2 Antigen (Rapid) Negative NEGATIVE Total Bilirubin 0.2 0.2-1.0 mg/dL Aspartate Amino Transferase (AST) 13 13-40 U/L Alanine Aminotransferase (ALT) 10 7-40 U/L Alkaline Phosphatase 111 46-116 U/L Total Protein 6.7 5.7-8.2 g/dL Albumin 3.6 3.2-4.8 g/dL Test 04/05/25 14:40 Range/Units Prothrombin Time 10.4 9.3-11.8 sec Prothrombin Time INR 0.98 0.9-1.15 Hemoglobin A1c 9.8 H <5.7 % A1C Direct Bilirubin < 0.1 <0.3 mg/dL Troponin I High Sensitivity < 3 L </=34 ng/L Vitamin B12 Level 387 211-911 pg/mL Thyroid Stimulating Hormone (TSH) 2.08 0.55-4.78 uIU/mL Plan/Recommendation 59 yo F with 2 week old left ankle trimalleolar fracture/dislocation. 1. I had a long and thorough discussion with the patient regarding her condition. Questions for patient answered. Risks benefits options and alternatives reviewed in depth. Risks include but not exclusive to bleeding infection nerve injury hardware failure nonunion malunion chronic pain blood clots cardiac and pulmonary complications amputation and . Patient understands the high risk of complications for her ankle fracture as she has had chronic deformity with abrasion/poor skin/ uncontrolled diabetes. Patient u nderstands and wishes to proceed with surgery 2. plan for open reduction internal fixation of left ankle fracture 3. NPO/IVF 4. pain control Plan discussed with: Patient KODY TORRES MD Apr 07, 2025 13:05
--- NOTE | 2025-04-07 13:07 | DVHOP2 ---
Operative Report - 2 Report Details Date: 04/07/25 Preop Diagnosis: Left trimalleolar ankle fracture/dislocation Postop Diagnosis: Left trimalleolar ankle fracture/dislocation Surgeon: Tulio Parikh MD Travelers' Aid Worker: Abrahan WHITE Anesthesiologist: Melissa VERMA Anesthesia: General Implant: ITS Ankle plating system Consent: The patient was informed of the risks and benefits of the procedure. These include but are not limited to complications of anesthesia, postoperative infection, incomplete relief of symptoms, recurrence of symptoms, damage to blood vessels, nerves and tendons, deep venous thrombosis, pulmonary embolism and possible need for repeat surgery in the future. Estimated Blood Loss: 5 cc Indications for Surgery: displaced and comminuted Left trimalleolar ankle fracture/dislocation. Patient has been dislocated for 2 weeks with poor skin tissue Name of Procedure Performed 1. Open reduction internal fixation of Left trimalleolar ankle fracture/dislocation 2. Placement of wound vac 3. Intraop fluoroscopy Procedure Details Procedure Details: HISTORY OF PRESENT ILLNESS: Risks/benefits/options and alternatives were discussed in length. Risks associated with anesthesia, infection, damage to nerv es and blood vessels, and bleeding or blood clots. Problems after ankle fracture surgery include ankle joint stiffness, weakness, need for further surgery and arthritis. Possible complications after ankle fracture surgery include infection and problems with healing. Patient high risk for complications due to poor skin from dislocation for 2 weeks with wound medially / tight tissue laterally due to swelling/ poorly controlled diabetic PROCEDURE: After all potential complications and risks as well as risks and benefits of the above-mentioned procedure was discussed at length with the patient and family, informed consent was obtained. The lower extremity was then confirmed with the operating surgeon, the patient, the nursing staff and Department of Anesthesia. The patient was then transferred to preoperative area in the Operative Suite and placed on the operating room table in supine position. At this time, the anesthesia was performed. All bony prominences were well padded at this time. A nonsterile tourniquet was placed on the left upper thigh of the patient. The lower extremity was sterilely prepped and draped in the usual sterile fashion. The right lower extremity was then elevated and exsanguinated using Esmarch and tourniquet was then placed to 250 mmHg. Next, after all bony and soft tissue landmarks were identified, a 6 cm longitudinal incision was made directly over the lateral mal fracture on the left ankle. A sharp dissection was carefully taken down to the level of bone taking care to protect the neurovascular structures. Once the bone was reached, the fractured site was identified. The bony ends were then opened and divided of all hematoma as well as excess periosteum within the fracture site. For her lateral side, she had a mid fibula fracture with shortening resulting in syndesmotic widening. With manual traction and manipulation with bone reduction clamps we were able to reduce patient fracture after taking down the fibrous malunion. Intraoperative fluoroscopy confirmed reduction.We then proceed with placement of fibula plate. Plate placed and screws placed under fluoro. 2 syndesmotic screws placed under fluoro. I did not place any hardware medially as patient had a large wound there. Fracture reduced medial aspect after I fixed laterally. Next Fluorsocpy was used to visualize the hardware placement as well as the fracture reduction appeared to be in good anatomic position, all hardware was in good position. There was no lateralization of the joints. At this time, each wound was copiously irrigated and suctioned dry. The wounds were then closed using #2-0 Vicryl suture in subcutaneous fashion followed by 3-0 nylon on the skin. Prevena wound vac placed on lateral aspect. A sterile dressing was applied consistent with Adaptic, 4x4s, Kerlix, and Webril. An ankle splint was then placed on the right lower extremity. The [facility] and to the Post[facility] Care Unit. The patient tolerated the procedure well. There were no complications. Condition Fair Disposition Still a Patient TULIO PARIKH MD Apr 07, 2025 13:07
--- NOTE | 2025-04-07 13:39 | DVHPN2 ---
Subjective Seen at bedside today, Reviewed: Care Plan Changes from previous H/P or p: No Changes General: Per HPI Eyes: No Pain, No Vision change, No Conjunctivae inflammation, No Eyelid inflammation, No Other, No Redness ENT: No Ear pain, No Ear discharge, No Nose pain, No Nose discharge, No Nose congestion, No Mouth pain, No Mouth swelling, No Throat pain, No Throat swelling, No Other Cardiovascular: No Chest Pain, No Palpitations, No Orthopnea, No Paroxysmal Noc. Dyspnea, No Edema, No Lt Headedness, No Other Respiratory: No Cough, No Dry, No Shortness of breath, No SOB with excertion, No Wheezing, No Hemoptysis, No Pleuritic Pain, No Sputum, No Other Gastrointestinal: No Nausea, No Vomiting, No Abdominal Pain, No Diarrhea, No Constipation, No Melena, No Hematochezia, No Other Genitourinary: No Dysuria, No Frequency, No Incontinence, No Hematuria, No Retention, No Other Musculoskeletal: No other, No neck pain, No shoulder pain, No arm pain, No back pain, No hand pain, No leg pain; foot pain Skin: No Rash, No Lesions, No Jaundice, No Bruising, No Other Objective Vitals Vital Signs Date Time Temp Pulse Resp B/P (MAP) Pulse Ox O2 Delivery O2 Flow Rate FiO2 04/07/25 09:00 98.2 75 17 159/75 (103) 98 98.2 04/07/25 08:00 Room Air* 0 21 Intake/Output Intake and Output 04/07/25 07:00 Intake Total 1650 ml Output Total 1150 ml Balance 500 ml Intake Oral 1500 ml IV Total 150 ml Output Urine Total 1150 ml # Bowel Movements 1 Exam GEN: Healthy appearing, well-developed, NAD. HEENT: NC/AT; MMM. CV: RRR, no m/r/g. LUNGS: CTAB, no w/r/c. ABD: Soft, NT/ND, NBS, no masses or organomegaly. EXT: skin Warm, well perfused. no rashes. No clubbing, cyanosis, or edema. Decreased range of motion and pain left ankle NEURO: Ambulating with no limitations. No focal deficits. General Appearance: Alert, Oriented X3, Cooperative, No acute distress HEENT: Atraumatic Lungs: Clear to auscultation Cardiovascular: Regular rate, Normal S1, Normal S2 Abdomen: Normal bowel sounds, Soft Extremities: Other (Left Ankle Swelling) Psych/Mental Status: Mental status NL Medications Current Medications Medications Dose Ordered Sig/Abdiel Route Start Time Stop Time Status Last Admin Dose Admin Acetaminophen 325 mg Q4HP PRN PO 04/05/25 14:30 Acetaminophen/ Hydrocodone Bitart 1 tab Q4HP PRN PO 04/05/25 14:30 04/07/25 10:31 1 TAB Ondansetron HCl 4 mg Q4HP PRN IV 04/05/25 14:30 Docusate Sodium 100 mg BIDPRN PRN PO 04/05/25 14:30 Morphine Sulfate 2 mg Q4HPRN PRN IV 04/05/25 14:30 04/06/25 21:36 2 MG Nitroglycerin 0.4 mg Q5MINP PRN SL 04/05/25 14:30 Morphine Sulfate 2 mg Q30M PRN IV 04/05/25 14:30 Famotidine 20 mg HS PO 04/06/25 22:00 04/06/25 21:37 20 MG Insulin Glargine 10 units HS SC 04/05/25 22:00 04/06/25 22:00 10 UNITS Diagnostic Test (Pha) 1 strip ACHS 04/06/25 17:00 04/07/25 12:07 1 STRIP Insulin Human Regular ACHS SC 04/06/25 17:00 04/07/25 06:37 3 UNITS Dextrose 50 ml UD PRN IV 04/06/25 12:45 Cefazolin Sodium 50 ml @ 100 mls/hr Q8HR IV 04/07/25 14:00 Laboratory Results Laboratory Tests 04/07/25 06:09 Chemistry Test 04/07/25 06:09 Calcium Level 9.4 mg/dL (8.7-10.4) Magnesium Level 2.3 mg/dL (1.6-2.6) Cardiac Markers Test 04/07/25 06:09 B-Type Natriuretic Peptide 114.75 pg/mL (0-100) Labs and/or images reviewed: Labs reviewed by me, Image(s) reviewed by me Assessment/Plan Assessment/Plan 04/07: Patient taken to OR today for intervention for left ankle fibula displaced comminuted fracture. We will continue diet to patient returns for more, PT and weight-bearing orders per Orthopedics. # Left Ankle Fracture - Ortho Surgery - postop day 0, patient's expected manage # Uncontrolled DM2 A1c 9.8 - Data Integrity Analyst on tight glycemic 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 Pulm Edema - Get CT Chest - ECHO # CHRISTINA due to VMN- present on admission - Improving - DC IVF now due to possible pulm edema # Goals of care discussion >19 mins FULL CODE Plan discussed with: Patient Date of Service: Apr 07, 2025 Billing Provider: GIUSEPPE GONZALEZ MD Common Visit Codes: [id number] INP/OBS CARE(HIGH) GIUSEPPE GONZALEZ MD Apr 07, 2025 13:39
[2025-04-07] MEDS: ceFAZolin 2 GM/D5W50ml 50 ML IV ONE (14:00)
--- NOTE | 2025-04-07 14:26 | ECG ---
[facility] Test Date: 2025-04-05 Test Time: 23:31:45 Pat Name: SENAIT TURNER Department: Respiratoy Room: 0216 A Gender: F Trimmer Operator: : [id number] Requested By: DUYEN WILSON Order Number: [id number] Reading MD: Antonino Bhatti Measurements Intervals [place] Rate: 77 P: 102 CT: 140 QRS: 70 QRSD: 86 T: 47 QT: 392 QTc: 444 Interpretive Statements Sinus rhythm can not rule out anteroseptal infarct. Poor R-wave progression. Electronically Signed On 04-08-2025 13:22:06 PDT by Antonino Bhatti Please click the below link to view image of tracing.
[2025-04-07] MEDS: BUPIVACAINE 0.25% INJ 50ML VIAL ONE (14:29)
[2025-04-07] MEDS ORDERED: PROPOFOL 10 MG/ML 20 ML IV ONE (14:42)
[2025-04-07] MEDS ORDERED: ONDANSETRON HCL 4 MG/2 ML VIAL ONE (14:43)
[2025-04-07] MEDS: ceFAZolin 1GM/50ML 50 ML IV SCH (15:46)
--- NOTE | 2025-04-07 15:56 | DVH ---
FLUOROSCOPY, OPERATING ROOM PROCEDURE REASON FOR EXAM: ORIF LT ANKLE FLUOROSCOPY TIME: 15.3 seconds PEAK SKIN DOSE: 0.30 mGy FINDINGS: Fluoroscopy was provided for GIUSEPPE GONZALEZ. 4 fluoroscopic spot images are submitted t o PACS. IMPRESSION: Intraoperative fluoroscopic assistance. Please refer to the operative report for a description of th e findings.
[2025-04-07] MEDS: ONDANSETRON HCL 4 MG/2 ML VIAL IV PRN (20:01)
[2025-04-08] VITALS (9 sets, daily range): BP systolic 84–174; BP diastolic 50–87; PULSE 70–98; RESP 15–18; TEMP 97.4–98.3; O2SAT 94–98
[2025-04-08 06:52] LABS: Hematocrit 34.7 % (36.0-46.0); Hemoglobin 12.1 g/dL (12.2-16.2); Mean Corpuscular Hemoglobin 31.8 pg (28.0-32.0); Mean Corpuscular Volume 90.9 fL (80.0-100.0); Nucleated Red Blood Cells % 0.1 %
[2025-04-08 07:02] LABS: Alanine Aminotransferase 11 U/L (7-40); Albumin 3.7 g/dL (3.2-4.8); Anion Gap 6 (5-15); BUN/Creatinine Ratio 29.0 (10.0-20.0); Blood Urea Nitrogen 20 mg/dL (9-23); Calcium 8.9 mg/dL (8.7-10.4); Carbon Dioxide 28 mmol/L (20-31); Chloride 102 mmol/L (98-107); Potassium 4.8 mmol/L (3.5-5.1); Sodium 136 mmol/L (136-145); Total Protein 6.8 g/dL (5.7-8.2)
[2025-04-08 07:20] LABS: Alkaline Phosphatase 127 U/L (46-116); Bilirubin, Total < 0.2 mg/dL (0.2-1.0); Glucose 260 mg/dL (74-106)
--- NOTE | 2025-04-08 10:31 | DVHPN2 ---
Subjective Seen at bedside today, doingwell Reviewed: Care Plan Changes from previous H/P or p: No Changes General: Per HPI Eyes: No Pain, No Vision change, No Conjunctivae inflammation, No Eyelid inflammation, No Other, No Redness ENT: No Ear pain, No Ear discharge, No Nose pain, No Nose discharge, No Nose congestion, No Mouth pain, No Mouth swelling, No Throat pain, No Throat swelling, No Other Cardiovascular: No Chest Pain, No Palpitations, No Orthopnea, No Paroxysmal Noc. Dyspnea, No Edema, No Lt Headedness, No Other Respiratory: No Cough, No Dry, No Shortness of breath, No SOB with excertion, No Wheezing, No Hemoptysis, No Pleuritic Pain, No Sputum, No Other Gastrointestinal: No Nausea, No Vomiting, No Abdominal Pain, No Diarrhea, No Constipation, No Melena, No Hematochezia, No Other Genitourinary: No Dysuria, No Frequency, No Incontinence, No Hematuria, No Retention, No Other Musculoskeletal: No other, No neck pain, No shoulder pain, No arm pain, No back pain, No hand pain, No leg pain; foot pain Skin: No Rash, No Lesions, No Jaundice, No Bruising, No Other Objective Vitals Vital Signs Date Time Temp Pulse Resp B/P (MAP) Pulse Ox O2 Delivery O2 Flow Rate FiO2 04/08/25 07:36 Room Air* 0 21 04/08/25 07:25 75 174/87 (116) 04/08/25 06:26 18 04/08/25 05:00 98.0 95 98.0 Intake/Output Intake and Output 04/08/25 07:00 Intake Total 715 ml Output Total 400 ml Balance 315 ml Intake Oral 540 ml IV Total 175 ml Output Urine Total 400 ml Exam GEN: Healthy appearing, well-developed, NAD. HEENT: NC/AT; MMM. CV: RRR, no m/r/g. LUNGS: CTAB, no w/r/c. ABD: Soft, NT/ND, NBS, no masses or organomegaly. EXT: skin Warm, well perfused. no rashes. No clubbing, cyanosis, or edema. Decreased range of motion and pain left ankle NEURO: Ambulating with no limitations. No focal deficits. General Appearance: Alert, Oriented X3, Cooperative, No acute distress HEENT: Atraumatic Lungs: Clear to auscultation Cardiovascular: Regular rate, Normal S1, Normal S2 Abdomen: Normal bowel sounds, Soft Extremities: Other (Left Ankle Swelling) Psych/Mental Status: Mental status NL Medications Current Medications Medications Dose Ordered Sig/Abdiel Route Start Time Stop Time Status Last Admin Dose Admin Acetaminophen 325 mg Q4HP PRN PO 04/05/25 14:30 Acetaminophen/ Hydrocodone Bitart 1 tab Q4HP PRN PO 04/05/25 14:30 04/08/25 07:33 1 TAB Ondansetron HCl 4 mg Q4HP PRN IV 04/05/25 14:30 04/07/25 20:01 4 MG Docusate Sodium 100 mg BIDPRN PRN PO 04/05/25 14:30 Morphine Sulfate 2 mg Q4HPRN PRN IV 04/05/25 14:30 04/08/25 05:56 2 MG Nitroglycerin 0.4 mg Q5MINP PRN SL 04/05/25 14:30 Morphine Sulfate 2 mg Q30M PRN IV 04/05/25 14:30 Famotidine 20 mg HS PO 04/06/25 22:00 04/07/25 21:55 20 MG Insulin Glargine 10 units HS SC 04/05/25 22:00 04/07/25 21:54 10 UNITS Diagnostic Test (Pha) 1 strip ACHS 04/06/25 17:00 04/08/25 06:55 1 STRIP Insulin Human Regular ACHS SC 04/06/25 17:00 04/08/25 06:53 4 UNITS Dextrose 50 ml UD PRN IV 04/06/25 12:45 Cefazolin Sodium 50 ml @ 100 mls/hr Q8HR IV 04/07/25 14:00 04/08/25 05:45 100 MLS/HR Nifedipine 10 mg DAILY PO 04/09/25 10:00 UNV Trazodone HCl 50 mg HS PO 04/08/25 22:00 UNV Laboratory Results Laboratory Tests 04/08/25 05:42 Chemistry Test 04/08/25 05:42 Albumin 3.7 g/dL (3.2-4.8) Calcium Level 8.9 mg/dL (8.7-10.4) Total Protein 6.8 g/dL (5.7-8.2) LFT Test 04/08/25 05:42 Alanine Aminotransferase (ALT) 11 U/L (7-40) Alkaline Phosphatase 127 U/L (46-116) H Aspartate Amino Transferase (AST) 15 U/L (13-40) Total Bilirubin < 0.2 mg/dL (0.2-1.0) L Labs and/or images reviewed: Labs reviewed by me, Image(s) reviewed by me Assessment/Plan Assessment/Plan 04/07: Patient taken to OR today for intervention for left ankle fibula displaced comminuted fracture. We will continue diet to patient returns for more, PT and weight-bearing orders per Orthopedics. 04/08: Postop day 1, patient healing well, there is wound VAC with no output today. We will continue pain control with [place] 10 q.6h. PT following left leg is nonweightbearing, PT recommendations we will be ordered social to help obtain bedside commode, front wheel walker, knee scooter, home health for home PT. We will keep patient 1 more day to organize all these matters and to ensure patient not requiring any further IV morphine for pain control. # Left Ankle Fracture - Ortho Surgery - postop - prn pain control - PT following - social consult to obtain needs # Uncontrolled DM2 A1c 9.8 - Nursing Specialist on tight glycemic 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 Pulm Edema - Get CT Chest - ECHO # CHRISTINA due to VMN- present on admission - Improving - DC IVF now due to possible pulm edema # Goals of care discussion >19 mins medsurg FULL CODE Plan discussed with: Patient My Orders Orders - GIUSEPPE GONZALEZ MD Procedure Category Date Status Time Nifedipine Capsule PHA 04/08/25 Logged (Procardia Capsule) 10:00 Nifedipine Capsule PHA 04/09/25 Logged (Procardia Capsule) 10:00 Trazodone Hcl PHA 04/08/25 Logged (Desyrel) 22:00 Date of Service: Apr 08, 2025 Billing Provider: GIUSEPPE GONZALEZ MD Common Visit Codes: [id number] INP/OBS CARE(HIGH) GIUSEPPE GONZALEZ MD Apr 08, 2025 10:31
[2025-04-08] MEDS: NIFEdipine 10 MG CAP PO ONE (11:13)
[2025-04-08] MEDS: HYDROcodone-ACET 10/325MG TAB PO PRN (12:04)
[2025-04-08] MEDS ORDERED: LACTATED RINGER'S 500 ML IV ONE (12:45)
[2025-04-08] MEDS: SODIUM CHLORIDE 0.9% 500 ML IV ONE (15:30)
[2025-04-09 01:00] VITALS: BP 117/58; PULSE 75; RESP 16; TEMP 98.4; O2SAT 95
[2025-04-09 05:00] VITALS: BP 149/74; PULSE 76; RESP 17; TEMP 98; O2SAT 97
[2025-04-09 06:46] LABS: Chloride 105 mmol/L (98-107); Potassium 4.3 mmol/L (3.5-5.1); Sodium 139 mmol/L (136-145)
[2025-04-09 06:47] LABS: Anion Gap 6 (5-15); Calcium 9.2 mg/dL (8.7-10.4); Carbon Dioxide 28 mmol/L (20-31)
[2025-04-09 06:52] LABS: BUN/Creatinine Ratio 21.9 (10.0-20.0); Blood Urea Nitrogen 16 mg/dL (9-23)
[2025-04-09 06:58] LABS: Glucose 207 mg/dL (74-106)
[2025-04-09 09:00] VITALS: BP 168/83; PULSE 73; RESP 18; TEMP 98.4; O2SAT 99
[2025-04-09] MEDS ORDERED: NIFEdipine 10 MG CAP PO SCH (10:00)
[2025-04-09 13:00] VITALS: BP_SYST 119; BP_SYST 151; BP_DIAS 71; BP_DIAS 77; PULSE 68; PULSE 77; RESP 16; RESP 18; TEMP 97.7; TEMP 98.1; O2SAT 95; O2SAT 98
[2025-04-09] MEDS ORDERED: AUG875T PO (16:12)
[2025-04-09] MEDS ORDERED: DOXY100C79 PO (16:12)
[2025-04-09] MEDS ORDERED: HYDR-4798 PO (16:23)
--- NOTE | 2025-04-09 16:24 | DVHDS2 ---
Discharge Summary Date of Admission Apr 05, 2025 at 14:28 Date of Discharge: Apr 09, 2025 Labs/Diagnostic Data: Laboratory Results Test 04/09/25 11:25 04/09/25 05:51 04/08/25 05:42 04/07/25 06:09 POC Glucose 212 mg/dl (70-106) Sodium Level 139 mmol/L (136-145) Potassium Level 4.3 mmol/L (3.5-5.1) Chloride Level 105 mmol/L (98-107) Carbon Dioxide Level 28 mmol/L (20-31) Anion Gap 6 (5-15) Blood Urea Nitrogen 16 mg/dL (9-23) Creatinine 0.73 mg/dL (0.550-1.02) Glomerular Filtration Rate Calc 94 mL/min (>90) BUN/Creatinine Ratio 21.9 (10.0-20.0) Serum Glucose 207 mg/dL (74-106) Calcium Level 9.2 mg/dL (8.7-10.4) White Blood Count 9.2 10^3/uL (4.4-10.8) Red Blood Count 3.82 10^6/uL (4.0-5.20) Hemoglobin 12.1 g/dL (12.2-16.2) Hematocrit 34.7 % (36.0-46.0) Mean Corpuscular Volume 90.9 fL (80.0-100.0) Mean Corpuscular Hemoglobin 31.8 pg (28.0-32.0) Mean Corpuscular Hemoglobin Concent 35.0 g/dL (32.0-36.0) Red Cell Distribution Width 12.6 % (11.8-14.3) Platelet Count 314 10^3/uL (140-450) Mean Platelet Volume 6.9 fL (6.9-10.8) Neutrophils (%) (Auto) 69.2 % (37.0-80.0) Lymphocytes (%) (Auto) 24.7 % (10.0-50.0) Monocytes (%) (Auto) 5.7 % (0.0-12.0) Eosinophils (%) (Auto) 0.2 % (0.0-7.0) Basophils (%) (Auto) 0.2 % (0.0-2.0) Neutrophils # (Auto) 6.4 10 ^3/uL (1.6-8.6) Lymphocytes # (Auto) 2.3 10 ^3/uL (0.4-5.4) Monocytes # (Auto) 0.5 10 ^3/uL (0-1.3) Eosinophils # (Auto) 0 10 ^3/uL (0-0.8) Basophils # (Auto) 0 10 ^3/uL (0-0.2) Nucleated Red Blood Cells 0.1 % Total Bilirubin < 0.2 mg/dL (0.2-1.0) Aspartate Amino Transferase (AST) 15 U/L (13-40) Alanine Aminotransferase (ALT) 11 U/L (7-40) Alkaline Phosphatase 127 U/L (46-116) Total Protein 6.8 g/dL (5.7-8.2) Albumin 3.7 g/dL (3.2-4.8) Magnesium Level 2.3 mg/dL (1.6-2.6) B-Type Natriuretic Peptide 114.75 pg/mL (0-100) Test 04/06/25 17:35 04/05/25 14:40 Influenza Type A Antigen Negative (Negative) Influenza Type B Antigen Negative (Negative) SARS-CoV-2 Antigen (Rapid) Negative (NEGATIVE) Prothrombin Time 10.4 sec (9.3-11.8) Prothrombin Time INR 0.98 (0.9-1.15) Hemoglobin A1c 9.8 % A1C (<5.7) Direct Bilirubin < 0.1 mg/dL (<0.3) Troponin I High Sensitivity < 3 ng/L (</=34) Vitamin B12 Level 387 pg/mL (211-911) Thyroid Stimulating Hormone (TSH) 2.08 uIU/mL (0.55-4.78) Other Laboratory Tests 04/09/25 05:51 04/08/25 05:42 Brief Hx & Hospital Course: HPI: Ms. Macias,a 59-year-old female presents with left ankle and foot pain following a spontaneous hyperextension injury 1.5 weeks ago, describing that her "leg gave out" beneath her. She delayed seeking care, believing the injury was not severe initially. She is currently unable to bear weight on the affected limb and reports moderate pain, swelling, erythema, and visible deformity. She arrived via wheelchair and is able to move the extremity but not ambulate. No prehospital treatment was administered. Her past medical history is significant for diabetes; she denies any surgical, gynecological, or family history relevant to the current illness. She is a non-smoker and denies alcohol or drug use. 04/07: Patient taken to OR today for intervention for left ankle fibula displaced comminuted fracture. We will continue diet to patient returns for more, PT and weight-bearing orders per Orthopedics. 04/08: Postop day 1, patient healing well, there is wound VAC with no output today. We will continue pain control with [place] 10 q.6h. PT following left leg is nonweightbearing, PT recommendations we will be ordered social to help obtain bedside commode, front wheel walker, knee scooter, home health for home PT. We will keep patient 1 more day to organize all these matters and to ensure patient not requiring any further IV morphine for pain control. 04/09: Surgical consults were placed yesterday, pain is better controlled with p.o. medications. Ortho follow up outpatient. Patient is stable for discharge as per plan below. Diagnosis: # Left trimalleolar ankle fracture/dislocation s/p Open reduction internal fixation # Uncontrolled DM2 A1c 9.8 # Possible Viral PNA vs. Pulm Edema # CHRISTINA due to VMN Discharge plan - non-weightbearing left leg - continue wound vac on left ankle region - follow up with Orthopedic clinic 1-2 weeks - Home health for wound care and home PT - for pain use, 1st line Tylenol OTC, second-line ibuprofen OTC, 3rd line prescription [place] 10 up to 3 times daily as needed -follow up with PCP to review discharge Condition at Discharge: Fair Final Diagnosis/Problems List # Left trimalleolar ankle fracture/dislocation s/p Open reduction internal fixation # Uncontrolled DM2 A1c 9.8 # Possible Viral PNA vs. Pulm Edema # CHRISTINA due to VMN Discharge Disposition: Home with Health Services Discharge Instruct/Medications Diet: Regular Activity: No Restrictions, As Tolerated Follow Up/Referral: See below Medications: See below Scheduled PRN Hydrocodone-Acetaminophen (Hydrocodone Bitartrate/AC 10-325 mg), 1 TAB PO QIDP PRN Discharge Statement: "Patient was advised to return to the ER or call 911 if any headaches, dizziness, shortness of breath, chest pain, abdominal pain, bleeding, fevers, or worsening of medical condition. Patient was counseled about treatment plan, medications, possible side effects, patientverbalized understanding. All questions were answered to the best of my ability. This discharge took greater then 30 minutes in planning, reviewing documentation, counseling the patient, and discussing with other team members." Date of Service: Apr 09, 2025 Billing Provider: GIUSEPPE GONZALEZ MD Common Visit Codes: [id number] DISCH DAY >30min GIUSEPPE GONZALEZ MD Apr 09, 2025 16:24
[2025-04-09 16:47] VITALS: BP 127/63; PULSE 62; RESP 16; TEMP 98.4; O2SAT 95
[2025-04-09 16:49] VITALS: BP 151/77; PULSE 77; RESP 18; TEMP 97.7; O2SAT 95
== END 2025-04-09 17:32 | disposition home or self-care (01) | DRG 492 ==
LOC: EDSEX 13:04 → ER 13:04 → OVERFLOW 14:28 → CENTRAL 18:06
PROVIDERS: ADMIT Student in an Organized Health Care Education/Training Program; ATTEND Student in an Organized Health Care Education/Training Program
PROC: B41G110 Fluoroscopy of Left Lower Extremity Arteries using Low Osmolar Contrast, Laser Intraoperative (ICD-10-PCS; 2025-04-07)
PROC: 0QSK04Z Reposition Left Fibula with Internal Fixation Device, Open Approach (ICD-10-PCS; principal; 2025-04-07 13:48)
DX: S82.852A Displaced trimalleolar fracture of left lower leg, initial encounter for closed fracture (principal); J12.9 Viral pneumonia, unspecified; N17.0 Acute kidney failure with tubular necrosis; S82.452A Displaced comminuted fracture of shaft of left fibula, initial encounter for closed fracture; E11.65 Type 2 diabetes mellitus with hyperglycemia; E11.40 Type 2 diabetes mellitus with diabetic neuropathy, unspecified; Z20.822 Contact with and (suspected) exposure to COVID-19; F17.200 Nicotine dependence, unspecified, uncomplicated; Z79.899 Other long term (current) drug therapy; Z83.3 Family history of diabetes mellitus; W01.0XXA Fall on same level from slipping, tripping and stumbling without subsequent striking against object, initial encounter; Y93.89 Activity, other specified; Y92.89 Other specified places as the place of occurrence of the external cause; Y99.8 Other external cause status
CPT/HCPCS: 36415; 71045; 71250; 73600; 73610; 76000; 80048; 80053; 80076; 82607; 82962; 83036; 83735; 83880; 84443; 84484; 85025; 85610; 86850; 86900; 86901; 87426; 87804; 93005; 93306; 93886; 93971; 97110; 97116; 97163; G0378; J1100; J1815; J2250; J2405; J2704; J3490